=== PATIENT | male | born 1990 | race Caucasian/White ===

== ENCOUNTER 2016-07-04 13:38 | Emergency (ER) | payer OTHER ==
[~2016-07-04] VITALS: Ht 177.8 cm; Wt 117.9 kg
[2016-07-04 14:01] VITALS: BP 132/80
--- NOTE | 2016-07-04 15:18 | NUR ---
PT AMBULATED TO BED 3 AT THIS TIME.
[2016-07-04] MEDS ORDERED: KETOROLAC 30 MG/ML VIAL IVP ONE (15:20)
[2016-07-04] MEDS ORDERED: NACL 0.9% 1,000 ML IV ONE (15:20)
--- NOTE | 2016-07-04 15:20 | NUR ---
26M BIB SELF C/O LEFT EAR PAIN, PRESSURE, NON-RADIATING, 4/10 X 4 DAYS; PT C/O SORE THROAT, DIFFICULTY BREATHING, PRODUCTIVE COUGH W/ GREENISH SPUTUM X 4 DAYS; BL LUNG SOUNDS CLEAR, RR EVEN/UNLABORED AT THIS TIME; PT O2 SAT 97 % ON ROOM AIR AT THIS TIME. PT A&OX4, DENIES N/V/D AT THIS TIME; SKIN IS WARM/DRY/INTACT AT THIS TIME; PT AMBULATORY W/ STEADY GAIT; PT RESTING IN BED W/ HOB ELEVATED AND IN LOWEST POSITION; POSITIONED FOR COMFORT; ER MD MADE AWARE OF STATUS. WILL CONTINUE TO MONITOR.
--- NOTE | 2016-07-04 15:58 | NUR ---
ER MD DR. GOMEZ EVALUATING PT AT BEDSIDE.
--- NOTE | 2016-07-04 16:50 | NUR ---
IV removed, catheter intact and site benign. Applied folded 4x4 gauze and tape to stop bleeding. PT TOLERATED PROCEDURE WELL.
[2016-07-04 16:54] VITALS: BP 124/74
--- NOTE | 2016-07-04 16:54 | NUR ---
Patient discharged with v/s stable. Written and verbal after care instructions given and explained. Patient alert, oriented and verbalized understanding of instructions. Ambulatory with . All questions addressed prior to discharge. ID band removed. Patient advised to follow up with PMD. Rx of PREDNISONE 20MG TAB & MOTRIN 800MG TAB given. Patient educated on indication of medication including possible reaction and side effects. Opportunity to ask questions provided and answered.
== END 2016-07-04 16:54 | disposition home or self-care (01) ==
LOC: MED 13:38
DX: J11.1 Influenza due to unidentified influenza virus with other respiratory manifestations (principal); F17.200 Nicotine dependence, unspecified, uncomplicated
CPT/HCPCS: 71020; 96361; 96374; 99284; J1885; J7030